=== PATIENT | male | born 1955 | race Caucasian/White ===

== ENCOUNTER 2022-06-20 08:13 | Inpatient (IN) | payer OTHER ==
[2022-06-17 12:27] LABS: BASOPHILS # (AUTO) 0.1 K/uL (0.0-0.2); BASOPHILS % (AUTO) 0.8 % (0.0-2.0); EOSINOPHILS # (AUTO) 0.2 K/uL (0.0-0.4); EOSINOPHILS % (AUTO) 2.4 % (0.0-4.0); HEMATOCRIT 48.7 % (36-54); HEMOGLOBIN 16.5 g/dL (14.0-18.0); LYMPHOCYTES # (AUTO) 1.4 K/uL (1.0-5.5); LYMPHOCYTES % (AUTO) 16.4 % (20.5-51.5); MEAN CORPUSCULAR HEMOGLOBIN 31 pg (27-31); MEAN CORPUSCULAR HGB CONC 34 % (32-36); MEAN CORPUSCULAR VOLUME 90 fL (79.0-98.0); MONOCYTES # (AUTO) 0.6 K/uL (0.0-1.0); MONOCYTES % (AUTO) 7.7 % (1.7-9.3); NEUTROPHILS # (AUTO) 6.1 K/uL (1.8-7.7); NEUTROPHILS % (AUTO) 72.7 % (40.0-70.0); PLATELET COUNT (AUTO) 167 K/uL (130-430); RED BLOOD CELL COUNT(AUTO) 5.39 MIL/uL (4.2-6.2); RED CELL DISTRIBUTION WIDTH 13.2 % (9.0-15.0); WHITE BLOOD COUNT (AUTO) 8.4 K/uL (4.8-10.8)
[2022-06-17 12:39] LABS: ALBUMIN 4.1 g/dL (3.4-4.8); CALCIUM 9.2 mg/dL (8.4-11.0); CREATININE 1.22 mg/dL (0.55-1.30); TOTAL BILIRUBIN 0.7 mg/dL (0.0-1.0)
[2022-06-17 12:40] LABS: INR 1.1 (0.80-1.20)
[~2022-06-20] VITALS: Ht 185.4 cm; Wt 111.1 kg
[2022-06-20] MEDS ORDERED: CEFAZOLIN SOD 2 GM in D5W 50 ML IV ONE (08:30)
[2022-06-20] MEDS ORDERED: ROCURONIUM BROMIDE 10 MG/ML (ZEMURON) ONE (10:00)
[2022-06-20] MEDS ORDERED: DEXAMETHASONE SOD PHOSPHATE 4 MG/ML VIAL ONE (10:00)
[2022-06-20] MEDS ORDERED: BUPIVACAINE /PF 0.75% 10 ML VIAL INJ ONE (10:00)
[2022-06-20] MEDS ORDERED: BUPIVACAINE /PF 0.25% 10 ML VIAL INJ ONE (10:00)
[2022-06-20] MEDS ORDERED: LR 1,000 ML IV.SOLN IV ONE (10:00)
[2022-06-20] MEDS ORDERED: TRANEXAMIC ACID 1,000 MG/10 ML VIAL ONE (10:00)
[2022-06-20] MEDS ORDERED: BUPIVACAINE /EPINEPHRINE/PF 0.5% 30 ML VIAL INJ ONE (10:00)
[2022-06-20] MEDS ORDERED: SUGAMMADEX SODIUM 200 MG/2 ML VIAL IV ONE (10:00)
[2022-06-20] MEDS ORDERED: KETOROLAC TROMETHAMINE 30 MG VIAL ONE (10:00)
[2022-06-20] MEDS ORDERED: ONDANSETRON HCL 4 MG/2 ML VIAL ONE (10:00)
[2022-06-20] MEDS ORDERED: MIDAZOLAM HCL 2 MG/2 ML VIAL (VERSED) ONE (10:00)
[2022-06-20] MEDS ORDERED: MORPHINE SULFATE 10MG/10ML PF AMP ONE (10:00)
[2022-06-20] MEDS ORDERED: DESFLURANE 15 MIN GAS INH ONE (10:00)
[2022-06-20] MEDS ORDERED: NS IRRIG SOLN 1000 ML IR ONE (10:00)
[2022-06-20] MEDS ORDERED: PROPOFOL 200MG/ 20ML VIAL (DIPRIVAN) IV ONE (10:00)
[2022-06-20] MEDS ORDERED: METOCLOPRAMIDE HCL 10 MG/2 ML VIAL IVP PRN ×2 (10:30→11:15)
[2022-06-20] MEDS ORDERED: DIPHENHYDRAMINE HCL 25 MG CAPSULE PO PRN (10:30)
[2022-06-20] MEDS ORDERED: NALOXONE HCL 0.4 MG/ML AMP (NARCAN) IVP PRN ×4 (10:30→11:15)
[2022-06-20] MEDS ORDERED: ACETAMINOPHEN I.V. 1000 MG 100 ML IV ONE (10:52)
[2022-06-20] MEDS ORDERED: ATEN50TA PO (11:00)
[2022-06-20] MEDS ORDERED: HYDR-3917 PO (11:00)
[2022-06-20] MEDS ORDERED: LORATADINE 10 MG TABLET PO PRN (11:00)
[2022-06-20] MEDS ORDERED: NAPR220T66 PO (11:00)
[2022-06-20] MEDS ORDERED: OMEG-158 PO (11:00)
[2022-06-20] MEDS ORDERED: IBUP-1971 PO (11:00)
[2022-06-20] MEDS ORDERED: MULT-1089 PO (11:00)
[2022-06-20] MEDS ORDERED: oxyCODONE HCL 5 MG TABLET PO PRN ×2 (11:00→14:00)
[2022-06-20] MEDS ORDERED: HYDROmorphone 1 MG/ML INJ. CARTRIDGE IVP PRN ×5 (11:15→14:00)
[2022-06-20] MEDS ORDERED: ONDANSETRON HCL 4 MG/2 ML VIAL IVP PRN ×2 (11:15→11:45)
[2022-06-20] MEDS ORDERED: LR 1,000 ML IV SCH (11:15)
[2022-06-20] MEDS ORDERED: MIDAZOLAM HCL 2 MG/2 ML VIAL (VERSED) IVP PRN (11:15)
[2022-06-20] MEDS ORDERED: MEPERIDINE HCL/PF 25 MG/ML DISP.SYRIN IVP PRN (11:15)
[2022-06-20] MEDS ORDERED: DIPHENHYDRAMINE INJ 50 MG/ML VIAL IVP PRN (11:15)
[2022-06-20] MEDS ORDERED: hydrALAZINE HCL 20 MG/ML VIAL IVP PRN (11:15)
[2022-06-20] MEDS: KETOROLAC TROMETHAMINE 10 MG TABLET (TORADOL) PO SCH ×2 (14:00→21:30)
[2022-06-20] MEDS: ACETAMINOPHEN 500 MG TABLET PO SCH ×2 (14:00→21:32)
[2022-06-20] MEDS ORDERED: traMADol HCL HCL 50 MG TABLET (ULTRAM) PO PRN (14:00)
[2022-06-20 15:48] LABS: BASOPHILS % (AUTO) 0.2 % (0.0-2.0); HEMATOCRIT 43.8 % (36-54); HEMOGLOBIN 14.8 g/dL (14.0-18.0); LYMPHOCYTES # (AUTO) 0.5 K/uL (1.0-5.5); MEAN CORPUSCULAR HEMOGLOBIN 31 pg (27-31); MEAN CORPUSCULAR HGB CONC 34 % (32-36); MEAN CORPUSCULAR VOLUME 91 fL (79.0-98.0); MONOCYTES # (AUTO) 0.1 K/uL (0.0-1.0); MONOCYTES % (AUTO) 1.1 % (1.7-9.3); NEUTROPHILS # (AUTO) 12.5 K/uL (1.8-7.7); NEUTROPHILS % (AUTO) 94.7 % (40.0-70.0); PLATELET COUNT (AUTO) 139 K/uL (130-430); RED BLOOD CELL COUNT(AUTO) 4.83 MIL/uL (4.2-6.2); RED CELL DISTRIBUTION WIDTH 13.3 % (9.0-15.0); WHITE BLOOD COUNT (AUTO) 13.2 K/uL (4.8-10.8)
[2022-06-20] MEDS: ceFAZolin SODIUM 2 GM in D5W 100 ML IV SCH (17:16)
[2022-06-20 17:20] VITALS: BP_SYST 143
[2022-06-20 18:12] VITALS: BP_SYST 143
[2022-06-20 19:00] VITALS: BP_SYST 139
[2022-06-20 20:00] VITALS: BP_SYST 139
[2022-06-20] MEDS: SENNOSIDES/DOCUSATE SODIUM 1 TAB TABLET(SENOKOT-S) PO SCH (21:28)
[2022-06-21] MEDS: TAMSULOSIN HCL 0.4 MG CAP PO SCH ×2 (00:19→08:50)
[2022-06-21] MEDS: ceFAZolin SODIUM 2 GM in D5W 100 ML IV SCH (01:29)
[2022-06-21 04:30] VITALS: BP_SYST 135
[2022-06-21] MEDS: KETOROLAC TROMETHAMINE 10 MG TABLET (TORADOL) PO SCH ×2 (05:28→13:26)
[2022-06-21] MEDS: ACETAMINOPHEN 500 MG TABLET PO SCH ×2 (05:30→13:26)
[2022-06-21 07:41] LABS: CALCIUM 8.7 mg/dL (8.4-11.0); CREATININE 1.47 mg/dL (0.55-1.30)
[2022-06-21 08:00] VITALS: BP_SYST 137
[2022-06-21] MEDS ORDERED: ASA81 PO (08:12)
[2022-06-21] MEDS: SENNOSIDES/DOCUSATE SODIUM 1 TAB TABLET(SENOKOT-S) PO SCH (08:50)
[2022-06-21] MEDS ORDERED: DECADRON 4 MG TABLET PO SCH (09:00)
[2022-06-21] MEDS ORDERED: ASPIRIN 81 MG TAB.CHEW PO SCH (09:00)
[2022-06-21] MEDS ORDERED: BISACODYL 10 MG/SUPPOSITORY RC PRN (10:30)
[2022-06-21] MEDS ORDERED: CELECOXIB 200 MG CAPSULE PO SCH (11:00)
[2022-06-21 11:30] VITALS: BP_SYST 129
[2022-06-21 13:37] VITALS: BP_SYST 133
[2022-06-23] MEDS ORDERED: LACTULOSE 20 GM/30 ML UDC PO PRN (10:30)
== END 2022-06-21 14:25 | disposition home health service (06) | DRG 470 ==
LOC: SMU 08:13
PROVIDERS: ADMIT Student in an Organized Health Care Education/Training Program; ATTEND Student in an Organized Health Care Education/Training Program
PROC: 0SRB0JZ Replacement of Left Hip Joint with Synthetic Substitute, Open Approach (ICD-10-PCS; principal; 2022-06-20 10:14)
DX: M16.12 Unilateral primary osteoarthritis, left hip (principal); Z20.822 Contact with and (suspected) exposure to COVID-19
CPT/HCPCS: 36415; 71046-TC; 72170-TC; 73501; 80048; 80053; 85025; 85610-TC; 85730-TC; 87081; 88305; 88311; 96379; 97116-GP; 97530-GP; J0131; J0690; J1100; J1885; J2274; J2405; J2704; J3465; J3490; J7060; J7120; J8540